=== PATIENT | female | born 2000 | race Hispanic/Latino ===

== ENCOUNTER 2021-12-02 03:02 | Emergency (ER) | payer OTHER ==
[~2021-12-02] VITALS: Ht 154.9 cm; Wt 58.1 kg
[2021-12-02] MEDS ORDERED: ONDANSETRON HCL 4 MG ORAL DISINTEGRATING TAB PO ONE (03:15)
== END 2021-12-02 03:39 | disposition home or self-care (01) ==
LOC: ER 03:11
DX: R11.0 Nausea (principal); A05.9 Bacterial foodborne intoxication, unspecified; R19.7 Diarrhea, unspecified; R50.9 Fever, unspecified
CPT/HCPCS: 99282; Q0162